=== PATIENT | female | born 1990 | race Caucasian/White ===

== ENCOUNTER 2021-01-20 21:19 | Emergency (ER) | payer OTHER ==
[~2021-01-20] VITALS: Ht 182.9 cm; Wt 120.2 kg
[~2021-01-20 21:19] MED LIST: ATIVAN0.5 MG PO; ATIVAN1 MG; BUTALB-APAP-CA1 EACH PO; DOXYCYCLINE 10100 MG PO; EXCEDRIN MIGRA1 EAC1 PO; FLAGYL500 MG PO; LEXAPRO 10 MG T10 M1 PO; MEDROLDOSEPACK PO; NORFLEX100 MG PO; PERCOCET PO; PHENERGAN 25 MG25 MG PO
[2021-01-20 21:33] VITALS: BP 130/79
[2021-01-20] MEDS ORDERED: DOXYCYCLINE 10100 M2 PO (22:22)
[2021-01-20] MEDS ORDERED: HYDROCODON-ACE1 EAC8 PO (22:22)
== END 2021-01-20 22:30 | disposition home or self-care (01) ==
LOC: M.ERS 21:19
DX: L02.415 Cutaneous abscess of right lower limb (principal); F17.210 Nicotine dependence, cigarettes, uncomplicated; G43.909 Migraine, unspecified, not intractable, without status migrainosus; Z98.890 Other specified postprocedural states; Z88.6 Allergy status to analgesic agent

== ENCOUNTER 2021-05-17 11:40 | Emergency (ER) | payer OTHER ==
[~2021-05-17] VITALS: Ht 182.9 cm; Wt 117.9 kg
[~2021-05-17 11:40] MED LIST changes: +DOXYCYCLINE 10100 M2 PO; +HYDROCODON-ACE1 EAC8 PO
--- NOTE | 2021-05-17 13:07 | EKG ---
[place] [address] ELECTROCARDIOGRAM REPORT Name: VALENTEPAMELA HYMANY Rosanna Room: [facility]#: [id number] Admission: 05/17/21 Attend Phys: Discharge: Date of : 89 Date of Service: 05/17/21 1147 Report #: [id number] THIS REPORT FOR: //name// [facility] ED Test Date: 2021-05-17 Test Time: 11:47:55 Pat Name: FERNANDA YANG Department: Room: Gender: Report Analyst: [facility] : 1990 Requested By: Antolin Nuñez Order Number: [id number] MD: Mac Jensen Measurements Intervals [place] Rate: 114 P: 56 IN: 166 QRS: -83 QRSD: 90 T: 44 QT: 298 QTc: 411 Interpretive Statements Sinus tachycardia Probable left atrial enlargement RsR' in V1 Low voltage, precordial leads No previous ECG available for comparison Electronically Signed On 05-17-2021 13:06:53 [employer] by Mac Jensen [email or web address] <ELECTRONICALLY SIGNED> By: Mac Jensen MD, [facility] 05/17/21 1306 1147 1147 Mac Jensen MD, [facility] /EPI
[2021-05-17 13:13] LABS: HEMATOCRIT 42.5 % (37.0-47.0); HEMOGLOBIN 14.6 gm/dL (12.0-15.0); MCH 28.8 pg (26.0-34.0); MCHC 34.3 g/dL (28.0-37.0); MCV 84.1 fL (80.0-100.0); MPV 7.1 fl. (7.2-11.1); NUCLEATED RBCS 0 /100WBC; PLATELET COUNT* 352 thou/uL (150-400); RBC 5.06 mil/uL (4.20-5.00); RDW-CV 14.2 % (10.5-14.5); WBC 9.7 thou/uL (4.0-11.0)
[2021-05-17 13:22] LABS: CALCIUM 9.5 mg/dL (8.5-10.1); CREATININE 0.9 mg/dL (0.6-1.3); POTASSIUM 4.1 mmol/L (3.5-5.1)
[2021-05-17 13:32] LABS: ALBUMIN 3.9 g/dL (3.4-5.0); MAGNESIUM 1.9 mg/dL (1.8-2.4); TOTAL BILIRUBIN 0.4 mg/dL (<0.1-1.0)
[2021-05-17 13:35] LABS: ABSOLUTE LYMPHOCYTES 1.1 thou/uL (0.8-5.3); ABSOLUTE MONOCYTES 0.3 thou/uL (0.0-1.2); ABSOLUTE NEUTROPHILS 8.3 thou/uL (1.6-8.1)
[2021-05-17 13:36] LABS: PLATELET ESTIMATE ADEQUATE
[2021-05-17 13:42] LABS: INFLUENZA A ANTIGEN Negative (Negative); INFLUENZA B ANTIGEN Negative (Negative)
[2021-05-17] MEDS ORDERED: HYDROCODON-ACE1 EAC7 PO (15:25)
[2021-05-17 15:40] VITALS: BP 121/67
== END 2021-05-17 15:42 | disposition home or self-care (01) ==
LOC: M.ERS 11:40
PROVIDERS: Emergency Medicine Emergency Medical Services
DX: R07.89 Other chest pain (principal); Z20.822 Contact with and (suspected) exposure to COVID-19; G43.909 Migraine, unspecified, not intractable, without status migrainosus; F17.210 Nicotine dependence, cigarettes, uncomplicated; Z88.6 Allergy status to analgesic agent; Z98.890 Other specified postprocedural states

== ENCOUNTER 2021-06-03 09:43 | Emergency (ER) | payer OTHER ==
[~2021-06-03] VITALS: Ht 195.6 cm; Wt 120.2 kg
[~2021-06-03 09:43] MED LIST changes: +HYDROCODON-ACE1 EAC7 PO
[2021-06-03 11:15] LABS: INFLUENZA A ANTIGEN Positive (Negative); INFLUENZA B ANTIGEN Negative (Negative)
[2021-06-03] MEDS ORDERED: TAMIFLU75 MG PO (11:30)
[2021-06-03] MEDS ORDERED: VENTOLIN HFA 1818 GM INH (11:40)
[2021-06-03] MEDS ORDERED: ZOFRAN ODT4 MG PO (11:40)
[2021-06-03 11:43] VITALS: BP 144/76
== END 2021-06-03 11:44 | disposition home or self-care (01) ==
LOC: M.ERS 09:43
PROVIDERS: Nurse Practitioner Family
DX: J10.1 Influenza due to other identified influenza virus with other respiratory manifestations (principal); Z20.822 Contact with and (suspected) exposure to COVID-19; F41.9 Anxiety disorder, unspecified; F32.9 Major depressive disorder, single episode, unspecified; F17.210 Nicotine dependence, cigarettes, uncomplicated; Z98.890 Other specified postprocedural states; Z88.8 Allergy status to other drugs, medicaments and biological substances